=== PATIENT | male | born 1950 | race Caucasian/White ===

== ENCOUNTER 2022-03-17 17:06 | Emergency (ER) | payer MEDICARE, SELFPAY ==
[2022-03-17 17:52] VITALS: BP 166/95; PULSE 102; RESP 18; TEMP 36.6; O2SAT 95; BMI 28.4
--- NOTE | 2022-03-17 19:11 | ECG_ITS ---
[facility] Test Date: 2022-03-17 Pat Name: Bryan Head Department: Room: Gender: Male Fancy [employer]er: : 1950 Requested By: Sanna Calles Order Number: [id number] Damaris MD: Domingo Perdomo M.D. Measurements Intervals [place] Rate: 100 P: 42 TX: 135 QRS: 43 QRSD: 85 T: 44 QT: 341 QTc: 440 Interpretive Statements SINUS TACHYCARDIA POSSIBLE LEFT ATRIAL ENLARGEMENT [-0.1mV P WAVE IN V1/V2] ABNORMAL RHYTHM ECG No previous ECG available for comparison Electronically Signed On 03-17-2022 20:45:00 CDT by Domingo Perdomo M.D. [email or web address]
[2022-03-17 19:26] LABS: Basophils % 0.3 %; Eosinophils % 0.3 %; Hematocrit 39.3 % (42.0-52.0); Hemoglobin 13.3 g/dL (11.7-16.6); Lymphocytes # 0.6 10^3/uL (0.8-4.8); Lymphocytes % 8.2 %; Mean Corpuscular HGB Conc 33.8 g/dL (30.0-36.0); Mean Corpuscular Hemoglobin 36.2 pg (28.0-34.0); Mean Corpuscular Volume 107.1 fl (80-94); Mean Platelet Volume 9.1 fL (7.4-10.4); Monocytes # 0.8 10^3/uL (0.2-0.9); Monocytes % 12.1 %; Neutrophils # 5.28 10^3/uL (1.8-7.7); Neutrophils % 78.5 %; Nucleated Red Blood Cells % 0 %; Platelet Count 211 10^3/cmm (130-400); Red Blood Count 3.67 10^6/uL (4.1-5.3); White Blood Count 6.7 10^3/uL (4.0-10.0)
[2022-03-17 19:58] LABS: Alanine Aminotransferase 29 U/L (0-41); Alkaline Phosphatase 68 U/L (40-130); Aspartate Amino Transferase 26 U/L (0-40); Blood Urea Nitrogen 10 mg/dL (8-23); Calcium 8.8 mg/dL (8.5-10.5); Carbon Dioxide 22 mmol/L (22-29); Chloride 90 mmol/L (98-107); Globulin 2.7 g/dL (1.3-4.6); Glucose 103 mg/dL (65-115); Lipase 43 U/L (13-60); Osmolality Calculated 263 mOsm/kg (285-295); Sodium 127 mmol/L (136-145); Total Bilirubin 0.7 mg/dL (0.15-1.2); Total Protein 6.7 g/dL (6.6-8.7)
[2022-03-17 19:59] LABS: Anion Gap 19.3 (5-19); Potassium 4.3 mmol/L (3.5-5.1)
--- NOTE | 2022-03-17 21:50 | ED_ITS ---
HPI - GI Bleed General: Chief complaint: GI Bleed Stated complaint: Stomach pain Time Seen by Provider: 03/17/22 21:48 History of Present Illness: 71-year-old male patient comes in today for concerns of change in his stool. Patient reports he has a history of peptic ulcer disease and has been without his medication for the last 3 days. Patient noticed some changes in his stool this morning. Patient appears nontoxic. Patient appears in no pain. Physical Exam Const: COMMON NORMALS: alert HENMT: HEAD & SCALP: normal to inspection Neck/C-Spine: COMMON NORMALS: full ROM Resp: COMMON NORMALS: normal respiratory effort Cardio: COMMON NORMALS: regular rate and regular rhythm RATE: regular rate RHYTHM: regular rhythm Extremity: COMMON NORMALS: full ROM Neuro: SENSORIUM/ORIENTATION: Yes alert Skin: COMMON NORMALS: turgor normal GENERAL SKIN EXAM: turgor normal Course Vital Signs: Vital signs: Vital Signs Temperature 98 F 03/17/22 17:52 Pulse Rate 102 H 03/17/22 17:52 Respiratory Rate 18 03/17/22 17:52 Blood Pressure 166/95 03/17/22 17:52 Pulse Oximetry 95 03/17/22 17:52 Oxygen Delivery Me thod 03/17/22 17:52 MDM - GI Bleed Medical Decision Making 71-year-old male patient comes in today for complaints of change in the nature of his stool. Patient notices increased foul-smelling and some discoloration of his stool. Patient reports a history of peptic ulcer disease and not taking his acid reducing medication for the last 3 days. On exam vital signs are normal. Patient is alert and oriented. Abdomen soft nontender. Skin is warm and dry. Differential diagnosis includes GI bleed, viral syndrome, anemia. Laboratory values were unremarkable. We will restart patient back on his pantoprazole 40 mg twice a day with recommendations for follow-up with primary care for further refills. Patient was also recommended to return to the ER for worsening bleeding, blood in vomit, or fever greater than 100.4. Lab Data : 03/17/22 19:17 03/17/22 19:17 Laboratory Results WBC 6.7 10^3/uL (4.0-10.0) 03/17/22 19:17 RBC 3.67 10^6/uL (4.1-5.3) L 03/17/22 19:17 Hgb 13.3 g/dL (11.7-16.6) 03/17/22 19:17 Hct 39.3 % (42.0-52.0) L 03/17/22 19:17 MCV 107.1 fl (80-94) H 03/17/22 19:17 MCH 36.2 pg (28.0-34.0) H 03/17/22 19:17 MCHC 33.8 g/dL (30.0-36.0) 03/17/22 19:17 RDW 13.0 % (12.1-15.1) 03/17/22 19:17 Plt Count 211 10^3/cmm (130-400) 03/17/22 19:17 MPV 9.1 fL (7.4-10.4) 03/17/22 19:17 Neut % (Auto) 78.5 % 03/17/22 19:17 Lymph % (Auto) 8.2 % 03/17/22 19:17 [place] % (Auto) 12.1 % 03/17/22 19:17 Eos % (Auto) 0.3 % 03/17/22 19:17 Baso % (Auto) 0.3 % 03/17/22 19:17 Neut # (Auto) 5.28 10^3/uL (1.8-7.7) 03/17/22 19:17 Lymph # (Auto) 0.6 10^3/uL (0.8-4.8) L 03/17/22 19:17 [place] # (Auto) 0.8 10^3/uL (0.2-0.9) 03/17/22 19:17 Eos # (Auto) 0.0 10^3/uL (0.0-0.8) 03/17/22 19:17 Baso # (Auto) 0.0 10^3/uL (0.0-0.1) 03/17/22 19:17 Nucleated RBC % (auto) 0 % 03/17/22 19:17 Nucleated RBCs # 0.0 /100WBC 03/17/22 19:17 Sodium 127 mmol/L (136-145) L 03/17/22 19:17 Potassium 4.3 mmol/L (3.5-5.1) 03/17/22 19:17 Chloride 90 mmol/L (98-107) L 03/17/22 19:17 Carbon Dioxide 22 mmol/L (22-29) 03/17/22 19:17 Anion Gap 19.3 (5-19) H 03/17/22 19:17 BUN 10 mg/dL (8-23) 03/17/22 19:17 Creatinine 0.7 mg/dL (0.7-1.2) 03/17/22 19:17 GFR Calculation Not Reportable 03/17/22 19:17 Glucose 103 mg/dL (65-115) 03/17/22 19:17 Calculated Osmolality 263 mOsm/kg (285-295) L 03/17/22 19:17 Calcium 8.8 mg/dL (8.5-10.5) 03/17/22 19:17 Total Bilirubin 0.7 mg/dL (0.15-1.2) 03/17/22 19:17 AST 26 U/L (0-40) 03/17/22 19:17 ALT 29 U/L (0-41) 03/17/22 19:17 Alkaline Phosphatase 68 U/L (40-130) 03/17/22 19:17 Total Protein 6.7 g/dL (6.6-8.7) 03/17/22 19:17 Albumin 4.0 g/dL (3.5-5.2) 03/17/22 19:17 Globulin 2.7 g/dL (1.3-4.6) 03/17/22 19:17 Lipase 43 U/L (13-60) 03/17/22 19:17 Discharge Plan Discharge Patient Disposition: Home Clinical Impression: PUD (peptic ulcer disease) Condition: Stable Prescriptions: New pantoprazole 40 mg tablet,delayed release (DR/EC) 40 mg PO BID 30 Days Qty: 60 0RF Discharge Orders: Discharge ED (Routine); Ordered 03/17/22 Ordered By: Juan F Dill Discharge Diet: Usual diet Discharge Activity: Increase activity as tolerated Patient Instructions: Peptic Ulcer (ED) Activity Restrictions/Additional Instructions: Follow-up with primary care. Drink plenty of fluids. Take medications as directed 30 minutes before your first and last meal of the day. Return to ER for new concerns or worsening symptoms such as uncontrolled abdominal pain, fever greater than 100.4, and increased bleeding. Coding Level of Care Code ED Tour Conductor for Aiyana Doll
[2022-03-17] MEDS: pantoprazole DR 40 mg Tablet PO (22:03)
== END 2022-03-17 22:07 | disposition home or self-care (01) ==
PROVIDERS: Emergency Medicine; Emergency Provider Nurse Practitioner Family
DX: K27.9 Peptic ulcer, site unspecified, unspecified as acute or chronic, without hemorrhage or perforation (principal)
CPT/HCPCS: 36415; 80053; 83690; 85025; 93005; 99284